=== PATIENT | female | born 2000 | race Caucasian/White ===

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

== ENCOUNTER 2020-05-08 18:06 | Emergency (ER) | payer OTHER ==
[~2020-05-08] VITALS: Ht 175.3 cm; Wt 65.8 kg
[2020-05-08 18:55] LABS: URINE BILIRUBIN NEGATIVE (Negative); URINE BLOOD 3+ (Negative); URINE CLARITY CLOUDY; URINE COLOR YELLOW; URINE GLUCOSE-RANDOM* NEGATIVE (Negative); URINE KETONES NEGATIVE (Negative); URINE LEUKOCYTES-REFLEX 3+ (Negative); URINE NITRITE-REFLEX POSITIVE (Negative); URINE PROTEIN (DIPSTICK) 2+ (Negative); URINE UROBILINOGEN 0.2 E.U./dl (0.2-1.0)
[2020-05-08 19:37] LABS: SQUAMOUS 0-3 Few /LPF (0-3)
[2020-05-08 19:38] LABS: CASTS None Seen /LPF (None Seen); CRYSTALS None Seen /LPF (None Seen); MUCUS 0-3 Light strn/LPF (None Seen); URINE RBC >20 Many /HPF (0-2); URINE WBC-REFLEX >25 Many /HPF (0-5); WBC CLUMPS Packed (None Seen)
[2020-05-08] MEDS ORDERED: IRON PO (19:58)
[2020-05-08 20:22] LABS: HEMOGLOBIN 13.7 gm/dL (12.0-15.0); MCH 28.2 pg (26.0-34.0); MCHC 32.6 g/dL (28.0-37.0); MCV 86.6 fL (80.0-100.0); PLATELET COUNT 264 thou/uL (150-400); RBC 4.85 mil/uL (4.20-5.00); RDW 15.3 % (10.5-14.5)
[2020-05-08 20:31] LABS: CALCIUM 9.1 mg/dL (8.5-10.1); POTASSIUM 3.5 mmol/L (3.5-5.1)
[2020-05-08 20:38] LABS: ALBUMIN 3.2 g/dL (3.4-5.0); TOTAL BILIRUBIN 0.5 mg/dL (0.2-1.0); TOTAL PROTEIN 7.7 g/dL (6.4-8.2)
[2020-05-08 21:13] LABS: ABSOLUTE NEUTROPHILS 23.2 thou/uL (1.4-8.2); PLATELET ESTIMATE NORMAL
[2020-05-08] MEDS ORDERED: BACTRIM DS TAB1 EACH PO (21:35)
[2020-05-08 22:38] VITALS: BP 119/71
== END 2020-05-08 22:38 | disposition home or self-care (01) ==
LOC: ER 18:06
PROVIDERS: Physician Assistant
DX: O86.21 Infection of kidney following delivery (principal); Z79.899 Other long term (current) drug therapy